=== PATIENT | female | born 1975 | race Caucasian/White ===

== ENCOUNTER 2016-10-26 10:51 | Emergency (ER) | payer SELFPAY ==
--- NOTE | 2016-10-26 11:37 | PHYS DOC ---
Adult General Chief Complaint Chief Complaint: COUGH HPI HPI Patient is a 40 year old F who presents with URI symptoms and a cough for the past 4 days. Patient states that over the past 4 days she's had a runny nose cough head cold and congestion this morning it was getting worse therefore check to come the emergency room. Patient denies any fevers. Patient is a smoker. Patient denies any chest pain or shortness of breath. Patient denies any nausea/vomiting/diarrhea. Patient has no other complaints. Review of Systems Review of Systems GEN: Denies fevers, chills, sweats HEENT: sore throat CV: Denies chest pain RESP: cough GI: Denies n/v/d NEURO: Denies confusion, dizziness MSK: Denies weakness, joint pain/swelling Allergies Allergies Allergies Coded Allergies Type Severity Reaction Last Updated Verified tramadol Allergy Unknown 10/26/16 Yes Physical Exam Physical Exam GEN.: No apparent distress. Alert and oriented. HEENT: Head is normocephalic, atraumatic, TMs clear bilaterally, posterior pharynx non-erythematous no tonsillar swelling and no exudate seen NECK: Supple. LUNGS: CTAB. HEART: RRR, S1, S2 present. Peripheral pulses intact ABDOMEN: Soft, nontender. Positive bowel sounds. EXTREMITIES: Without any cyanosis. NEUROLOGIC: Normal speech, normal tone PSYCHIATRIC: Normal affect, normal mood. SKIN: No ulcerations Current Patient Data Lab Values Laboratory Tests Test 10/26/16 10:47 POC Urine HCG, Qualitative Hcg negative (Negative) EKG EKG [] Radiology/Procedures Radiology/Procedures Chest x-ray NAD [] Course & Med Decision Making Course & Med Decision Making Pertinent Labs and Imaging studies reviewed. (See chart for details) ED course: Patient was seen and examined emergency room chest x-ray was ordered 1210: Patient was updated on results of chest x-ray and due the fact she is a heavy smoker we'll place the patient on antibiotics for COPD exacerbation MDM: After reviewing the chart, CC/HPI/PMH, physical exam, [radiological results], I do not believe the patient has a significant rust or infection warranting further workup and/or admission at this time. I believe the patient is stable for discharge. Additional verbal discharge instructions were provided to the patient and that if symptoms get worse or any new symptoms arise that are worrisome to the patient she is to return to the emergency room immediately [] Dragon Disclaimer Dragon Disclaimer This electronic medical record was generated, in whole or in part, using a voice recognition dictation system. Departure Departure Impression: Primary Impression: URI (upper respiratory infection) Additional Impressions: COPD (chronic obstructive pulmonary disease) Tobacco abuse Disposition: HOME, SELF-CARE Condition: IMPROVED Referrals: NO PCP (PCP) Patient Instructions: Upper Respiratory Infection, Adult, [id number] Additional Instructions: Please follow-up with your family physician in one to 2 days and return if symptoms increase Scripts Azithromycin (ZITHROMAX) 250 Mg Tablet 1 PKG PO UD, #6 TAB Prov: TYSON STONER DO 10/26/16 Problem Qualifiers TYSON STONER DO Oct 26, 2016 11:37
--- NOTE | 2016-10-26 12:03 | RAD ---
PA and lateral chest radiographs 10/26/2016. Clinical History: Cough and sore throat shortness of breath for 2 days. PA and lateral digital radiographs of the chest were obtained. No previous studies are available for comparison. The cardiac and mediastinal silhouettes are within normal limits in size and configuration. No pulmonary infiltrate is seen. No pleural effusion or pneumothorax is noted. The osseous structures are grossly intact. Surgical clips are seen within the right upper quadrant of the abdomen consistent with a cholecystectomy. Impression: No radiographic evidence of active cardiopulmonary disease.
[2016-10-26] MEDS ORDERED: AZIT250T PO (12:14)
[2016-10-26 12:25] VITALS: BP 137/67
== END 2016-10-26 12:28 | disposition home or self-care (01) ==
LOC: ER 10:51
DX: J06.9 Acute upper respiratory infection, unspecified (principal); J44.9 Chronic obstructive pulmonary disease, unspecified; F17.200 Nicotine dependence, unspecified, uncomplicated; Z88.5 Allergy status to narcotic agent
CPT/HCPCS: 71020; 81025; 99284-25